=== PATIENT | male | born 1970 | race Two or more races ===

== ENCOUNTER 2021-12-04 16:21 | Emergency (ER) | payer BC ==
[2021-12-04] MEDS ORDERED: cloNIDine 0.1 MG Tab PO ONE (17:12)
[2021-12-04 18:01] LABS: CARBON DIOXIDE,CO2 25.9 mmol/L (21.0-32.0)
== END 2021-12-04 18:17 | disposition home or self-care (01) ==
LOC: MW.ED 16:21
DX: I10 Essential (primary) hypertension (principal)
CPT/HCPCS: 36415; 71045; 80053; 84484; 85025; 93005; 99284; A9270